=== PATIENT | female | born 1950 | race Caucasian/White ===

== ENCOUNTER 2019-01-29 09:59 | Inpatient (IN) | payer OTHER ==
[~2019-01-29] VITALS: Ht 167.6 cm; Wt 71.7 kg
[2019-01-29 10:02] VITALS: BP 169/95
--- NOTE | 2019-01-29 10:11 | NUR ---
PT BROUGHT BACK TO ER ROOM FROM WAITING AREA. EKG PERFORMED BY CHRISTELLE DODGE AND GIVEN TO DR. ANDERSON. PT ATTACHED TO BP CUFF, PULSE OX, AND TELEMETRY BY CHRISTELLE PAUL. THIS NURSE INSERTED 18 G IN LEFT UPPER ARM. BLOOD WORK COLLECTED FROM IV BY THIS NURSE. BLOOD WORK GIVEN TO ASSET ACCOUNTANT AT BEDSIDE AND ASSET ACCOUNTANT SENT BLOOD WORK TO LAB. ASSESSMENT PERFORMED BY THIS NURSE. PT IN GOWN AND GIVEN WARM BLANKET. PT MADE AWARE OF PLAN OF CARE AND WAIT TO SEE DRJenny STATED UNDERSTANDING. DENIES OTHER NEEDS. CALL LIGHT PLACED WITHIN REACH.
[2019-01-29 10:16] LABS: ABSOLUTE BASOPHILS 0.1 thou/uL (0.0-0.2); ABSOLUTE LYMPHOCYTES 1.7 thou/uL (0.8-5.3); ABSOLUTE MONOCYTES 0.3 thou/uL (0.0-1.2); ABSOLUTE NEUTROPHILS 7.8 thou/uL (1.6-8.1); BASOPHILS 0.8 %; EOSINOPHILS 0.2 %; HEMATOCRIT 48.4 % (37.0-47.0); HEMOGLOBIN 16.2 gm/dL (12.0-15.0); MCH 30.4 pg (26.0-34.0); MCHC 33.6 g/dL (28.0-37.0); MCV 90.7 fL (80.0-100.0); MONOCYTES 2.8 %; MPV 9.8 fl. (7.2-11.1); NUCLEATED RBCS 0 /100WBC; PLATELET COUNT* 226 thou/uL (150-400); POLYS 79.2 %; RBC 5.33 mil/uL (4.20-5.00); RDW-CV 13.1 % (10.5-14.5); WBC 9.8 thou/uL (4.0-11.0)
[2019-01-29 10:25] LABS: APTT 29.6 Seconds (25.0-31.3); INR 0.9; PROTIME 9.4 Seconds (9.20-11.50)
--- NOTE | 2019-01-29 10:25 | NUR ---
MEDS ADMINISTERED TO PT BY THIS NURSE. REGISTERED DIETICIAN X2 AT BEDSIDE PERFORMING CHEST XRAY.
[2019-01-29 10:32] LABS: CALCIUM 9.3 mg/dL (8.5-10.1); CREATININE 0.8 mg/dL (0.6-1.3); POTASSIUM 3.4 mmol/L (3.5-5.1)
[2019-01-29 10:34] LABS: TROPONIN-I LEVEL 3.06 ng/mL (<0.06)
[2019-01-29 10:36] LABS: ALBUMIN 4.3 g/dL (3.4-5.0); CK-MB MASS 29.2 ng/mL (<0.5-3.6); TOTAL BILIRUBIN 0.5 mg/dL (<0.1-1.0); TOTAL PROTEIN 8.1 g/dL (6.4-8.2)
--- NOTE | 2019-01-29 10:55 | NUR ---
NURSE ADMINISTERED MEDS. PT REPORTING PAIN IN CHEST STILL REMAINS. DR. ANDERSON AWARE, NURSE ASKED FOR MORPHINE. DR. ANDERSON AGREEABLE AND TO ORDER MORPHINE. WILL ADMINISTER WHEN PT BACK FROM CT.
--- NOTE | 2019-01-29 11:48 | NUR ---
REPORT GIVEN TO CHRISTELLE DIAS WHO IS TO ASSUME PT CARE. PT BELONGINGS PACKED IN BAG. PT TO BE TAKEN TO ROOM 218 VIA STRETCHER BY THIS NURSE WITH CARDIAC MONITORING AND OXYGEN.
[2019-01-29 11:50] VITALS: BP 151/67
[2019-01-29 12:25] VITALS: BP 143/83
--- NOTE | 2019-01-29 16:22 | NUR ---
PT ADMITTED TO ROOM 218 AROUND 1200 TODAY. CONSULTED WITH CARDIOLOGY THIS SHIFT. ANTICIPATE PT TO HAVE HEART CATH TOMORROW AM. . NPO AFTER MIDNIGHT TONIGHT. PT ON HEPARIN GTT AND NITRO PASTE. NO C/O CP SINCE ADMISSION TO FLOOR. REFER TO ASSESSMENT. MAINTAINING OXYGEN SATURATION >92% ON RA. NO OTHER CONCERNS AT THIS TIME. CLWR. WCTM.
[2019-01-29 16:23] VITALS: BP 136/74
[2019-01-29 19:10] VITALS: BP 119/68
--- NOTE | 2019-01-29 23:00 | NUR ---
ASSESSMENT COMPLETED CHARTED. VSS. TRACING SR WITH 1ST DEGREE BLOCK ON MONITOR. PT C/O SLIGHT HEADACHE, DENIES CP, SOA, N/V/D. HOURLY ROUNDING IN PLACEFOR PT SAFETY. CLWR.
[2019-01-29 23:59] VITALS: BP 135/73
[2019-01-30] VITALS (14 sets, daily range): BP systolic 114–163; BP diastolic 42–87
[2019-01-30 01:40] LABS: TROPONIN-I LEVEL 5.24 ng/mL (<0.06)
[2019-01-30 01:42] LABS: CHOLESTEROL 153 mg/dL (<200); HDL CHOLESTEROL 55 mg/dL (>40); LDL CHOLESTEROL 85 mg/dL (<100); TC:HDL 2.8 Ratio (Not establshd); TRIGLYCERIDE 68 mg/dL (<150); VLDL 14 mg/dL (<40)
[2019-01-30 01:45] LABS: SERUM ASSESSMENT Clear
--- NOTE | 2019-01-30 09:46 | NUR ---
INITIAL ASSESSMENT: Pt evaluated for d/c planning needs. Reviewed chart and spoke with nurse, pt and pt's son. Pt is alert and oriented. Pt is retired and lives alone in house. Pt was idnependent with ADL's prior to admission to the hospital. Pt uses no DME and is not sure if she has any at home. Pt has not had home health in the past. Pt plans on returning home on d/c from hospital. Pt is scheduled to have cardiac cath today. Will remain available to assist as needed.
[2019-01-31] VITALS: BP 134/68
[2019-01-31 04:00] VITALS: BP 119/62; BP 144/84
--- NOTE | 2019-01-31 04:13 | NUR ---
PATIENT REMAINS STABLE THIS SHIFT WITH NO C/O CHEST PAIN, SOA, N/V/D. PATIENT HAD C/O RIGHT GROIN PAIN FROM CARDIAC CATH, RELIEVED WITH REST AND PO PAIN MEDICATION. PATIENT REMAINS ON ROOM AIR. ANTICIPATING DISCHARGE HOME TODAY. CALL LIGHT WITHIN REACH
[2019-01-31 05:34] LABS: HEMATOCRIT 39.4 % (37.0-47.0); MCH 30.1 pg (26.0-34.0); MCHC 33.6 g/dL (28.0-37.0); MCV 89.5 fL (80.0-100.0); MPV 10.5 fl. (7.2-11.1); RBC 4.4 mil/uL (4.20-5.00); RDW-CV 12.8 % (10.5-14.5); WBC 11.2 thou/uL (4.0-11.0)
[2019-01-31 05:41] LABS: HEMOGLOBIN 13.2 gm/dL (12.0-15.0)
[2019-01-31 05:55] LABS: ALBUMIN 3.1 g/dL (3.4-5.0); CALCIUM 8.4 mg/dL (8.5-10.1); CREATININE 0.7 mg/dL (0.6-1.3); POTASSIUM 3.7 mmol/L (3.5-5.1); TOTAL BILIRUBIN 0.3 mg/dL (<0.1-1.0); TOTAL PROTEIN 6.1 g/dL (6.4-8.2)
[2019-01-31 05:59] LABS: TROPONIN-I LEVEL 2.16 ng/mL (<0.06)
[2019-01-31 07:30] VITALS: BP 164/80
[2019-01-31] MEDS ORDERED: LIPITOR 20 MG T20 M1 PO (09:00)
[2019-01-31] MEDS ORDERED: CHILDREN'S ASPI81 M1 PO (09:00)
--- NOTE | 2019-01-31 10:03 | EKG ---
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
--- NOTE | 2019-01-31 10:04 | EKG ---
[place] [address] ELECTROCARDIOGRAM REPORT Name: YVESTINO L Room: [address] ADM IN M.R.#: [id number] Admission: 01/29/19 Attend Phys: Kenn Swift Discharge: Date of : 48 Report #: [id number] THIS REPORT FOR: //name// [facility] Test Date: 2019-01-30 Test Time: 15:09:08 Pat Name: TINO MARINELLI Department: Room: [address] Gender: F Mri Tech: MANUEL STARK : 1950 Requested By: Porfirio Henson Order Number: [id number] Reading MD: Hao Padilla Measurements Intervals [place] Rate: 64 P: 50 MN: 157 QRS: 15 QRSD: 90 T: -31 QT: 452 QTc: 467 Interpretive Statements Sinus rhythm Nonspecific T abnormalities, inferior leads No previous ECG available for comparison Electronically Signed On 01-31-2019 10:04:17 CDT by Hao Padilla [email or web address] <ELECTRONICALLY SIGNED> By: Hao Padilla MD, [facility] 01/31/19 1004 1509 1509 Hao Padilla MD, FAC /EPI
--- NOTE | 2019-01-31 10:05 | EKG ---
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: [id number] : 1950 Requested By: Porfirio Henson Order Number: [id number] Reading MD: Hao Padilla Measurements Intervals [place] Rate: 87 P: 57 ME: 169 QRS: -10 QRSD: 98 T: -68 QT: 418 QTc: 503 Interpretive Statements Sinus rhythm Probable left atrial enlargement Nonspecific T abnormalities, diffuse leads Prolonged QT interval Baseline wander in lead(s) V6 No previous ECG available for comparison Electronically Signed On 01-31-2019 10:04:59 CDT by Hao Padilla [email or web address] <ELECTRONICALLY SIGNED> By: Hao Padilla MD, FACC 01/31/19 1004 0325 0325 Hao Padilla MD, [facility] /EPI
[2019-01-31] MEDS ORDERED: EFFIENT10 MG PO (12:32)
[2019-01-31] MEDS ORDERED: NITROGLYCERIN0.4 MG SUBLING (12:33)
[2019-01-31 12:51] VITALS: BP 140/74
[2019-01-31] MEDS ORDERED: ATORVASTATIN CA40 MG PO (13:17)
[2019-01-31] MEDS ORDERED: NICOTINE TRANSD21 M1 TRANSDERM (13:18)
--- NOTE | 2019-01-31 14:27 | NUR ---
RECEIVED DISCHARGE ORDERS PER DR DREW. CV OK WITH DC TODAY. IV DISCONTINUED. SUPERINTENDENT STORAGE AREA REMOVED AND RETURNED TO NURSE'S DESK. EDUCATED THE PATIENT ON F/U APPT WITH HER PRIMARY AND CARDIOLOGY. EDUCATED ON NEW MEDICATIONS. SCRIPTS GIVEN WITH MED INFORMATION SHEETS. PATIENT VERBALIZED UNDERSTANDING AND DENIED ANY QUESTIONS OR CONCERNS AT TIME OF DC. LEAVING VIA WHEELCHAIR ACCOMPANIED BY NURSING STAFF AND HER SON.
--- NOTE | 2019-01-31 15:05 | EKG ---
[place] [address] ELECTROCARDIOGRAM REPORT Name: YVESTINO Room: [address] IN M.R.#: [id number] Admission: 01/29/19 Attend Phys: Kenn Swift Discharge: 01/31/19 Date of : 48 Report #: [id number] THIS REPORT FOR: //name// [facility] ED Test Date: 2019-01-29 Test Time: 10:04:59 Pat Name: TINO MARINELLI Department: Room: [facility] Gender: F Table Cover Folder: Ester : 1950 Requested By: Hesham Rajput Order Number: [id number] MD: Hao Padilla Measurements Intervals [place] Rate: 72 P: 45 UT: 154 QRS: -3 QRSD: 98 T: 57 QT: 427 QTc: 468 Interpretive Statements Sinus rhythm Probable left atrial enlargement No previous ECG available for comparison Electronically Signed On 01-31-2019 15:05:24 CDT by Hao Padilla [email or web address] <ELECTRONICALLY SIGNED> By: Hao Padilla MD, [facility] 01/31/19 1505 1004 1004 Hao Padilla MD, [facility] /EPI
--- NOTE | 2019-01-31 16:17 | CON ---
[address] [address] CONSULTATION Name: YVESTINO Aparna Room: [address] IN M.R.#: [id number] Admission: 01/29/19 Attend Phys: Kenn Swift Discharge: 01/31/19 Date of : 48 Report #: [id number] THIS REPORT FOR: //name// CC: Cammie Saul DATE OF SERVICE: 01/29/2019 CARDIOLOGY CONSULTATION HISTORY OF PRESENT ILLNESS: The patient is a 68-year-old single white female who I was asked to see in the hospital today after she complained of chest pain. The patient has no previous history of heart disease; however, she notes now for several months, she has had intermittent tightness in her chest. It usually occurs when she lies down in bed at night; however, last night, she had an episode that went into her left arm. She felt nauseated. It occurred off and on throughout the night. She finally drove herself to [facility] and admitted. She was noted to have an abnormal troponin. I was asked to see her for further evaluation and treatment. At this time, her chest pain has resolved. She denies any exertional dyspnea, palpitations, syncope, edema, fever, bleeding or cough. PAST MEDICAL HISTORY: She has had previous surgery on her foot. She has had a hysterectomy. She has a history of hyperlipidemia, but no longer takes a statin drug. She has glucose intolerance. She uses inhaler for COPD. She is on no other chronic medications. ALLERGIES: SHE HAS AN INTOLERANCE TO PHENOBARBITAL. FAMILY HISTORY: Her mother had a stent. SOCIAL HISTORY: She has been twice. Lives in [place], [place] [address] Smokes 2 packs of cigarettes a day, occasionally drinks alcohol. REVIEW OF SYSTEMS: She has had no history of stroke. She has had peptic ulcer in the past. She uses an inhaler. No history of GI bleeding, liver disease, cancer, psychiatric illness or chronic skin condition. PHYSICAL EXAMINATION: GENERAL: Revealed a middle-aged female lying in bed. She appeared in no distress. VITAL SIGNS: Blood pressure 140/80, pulse 50, she is afebrile. HEENT: She was anicteric, conjunctivae pink. Mucous membranes are moist. NECK: Neck veins nondistended. No carotid bruits. Neck supple. CHEST: [place] [address] CONSULTATION Name: TINO MARINELLI Room: [address]#: [id number] Admission: 01/29/19 Attend Phys: Kenn Swift Discharge: 01/31/19 Date of : 48 Report #: [id number] CARDIOVASCULAR: Regular rate and rhythm without murmur. ABDOMEN: Soft, nontender. EXTREMITIES: Had no edema. SKIN: Warm and dry. NEUROLOGIC: Nonfocal. LYMPH: No adenopathy. MUSCULOSKELETAL: No joint effusion. ECG showed a sinus rhythm. There was no significant ST or T-wave change. Workup in the Emergency Room today, she had portable chest x-ray that showed some atelectasis, otherwise unremarkable. She had a CT scan of the chest today with contrast that showed no pulmonary embolus, hepatic cysts, pulmonary atelectasis. LABORATORY DATA: Sodium 145, potassium 3.4, BUN 16, creatinine 0.8, glucose 122. Liver function studies are normal. Troponin on admission was 3.06. White blood cell count 9.8, hemoglobin 16.2. IMPRESSION AND RECOMMENDATIONS: 1. Non-ST elevation myocardial infarction. Recommend cardiac catheterization. 2. Tobacco abuse. 3. Glucose intolerance. <ELECTRONICALLY SIGNED> By: Uriel Patel MD, FACC 01/31/19 1617 1245 [id number] Patel MD, FACC /nt
--- NOTE | 2019-01-31 16:31 | CARD ---
[address] [address] CARDIAC CATH REPORT Name: TINO MARINELLI Room: [address]R#: [id number] Admission: 01/29/19 Attend Phys: Kenn Swift Discharge: 01/31/19 Date of : 48 Report #: [id number] THIS REPORT FOR: //name// APPROVED REPORT Study performed: 01/30/2019 11:23:22 Patient Details The patient is a 68 year-old female Event Personnel Porfirio Henson Cabinet Abrasive Sandblaster, Analy Fonseca RN RN, Inocente KennedyIS Monitor, Toby Ballard (R) Shakira Ramon Tina RN Monitor Procedures Performed Left heart catheterization left ventriculography selective coronary arteriography and percutaneous coronary intervention to the right coronary artery with deployment of a drug-eluting stent Indication Non-STEMI Risk Factors Hypercholesterolemia, Hypertension, Tobacco History () Admission/Lab Medications/Medications given during procedure Aspirin, Platelet Aff. Inhib., Angiomax bolus and infusion Procedure Narrative The patient was brought electively to the Cardiac Catheterization Laboratory and was prepped and draped in a sterile manner. The right femoral was infiltrated with 2% Lidocaine subcutaneous anesthesia. A 6fr Ultimum Sheath sheath was inserted into the . Coronary angiography was performed using coronary diagnostic catheters. The right coronary system was accessed and visualized with a Diagnostic - JR4 catheter. The left coronary system was accessed and visualized with a Diagnostic - JL4 catheter. The left ventricle was accessed and visualized with a Diagnostic - STR PIG catheter. Left ventricular/Aortic Valve gradient assessed via catheter pullback. Left ventriculogram was performed in GOMEZ projection. The patient tolerated the procedure well and there were no complications associated with the procedure. [place] [address] CARDIAC CATH REPORT Name: TINO MARINELLI Aparna Room: [address]#: [id number] Admission: 01/29/19 Attend Phys: Kenn Swift Discharge: 01/31/19 Date of : 48 Report #: [id number] Intraoperative Conscious Sedation Sedation start time: 1202 Case end Time: 1246 Fentanyl 25 mcg Versed 2 mg Fluoro Time: 11.4 minutes Dose: DAP 29905 cGycm2 1146 mGy Contrast Type and Amount: Visipaque 370 ml Coronary Angiography The patient's coronary anatomy is right dominant. Diagnostic Cath Left Main 0% narrowing LAD 30% proximal and mid LAD narrowing with 40% first diagonal narrowing Circumflex 50 Percent narrowing of the first marginal branch of the nondominant circumflex Right Coronary Large dominant right coronary artery with 90% mid vessel stenosis and local thrombus at the site. There was 50% tubular narrowing of the midportion of the posterolateral branch of the distal right coronary artery Left Ventriculography The left ventricle is normal in size with contractility. The left ventricular ejection fraction is estimated to be 60%. Left ventricular wall motion abnormalities are present. There is no mitral insufficiency. inferobasilar hypokinesis is noted Hemodynamics The aortic pressure is 147/74 mmHg with a mean of 105 mmHg. The left ventricular pressure is 152/2 mmHg with a mean of mmHg. The left ventricular end diastolic pressure is 12 mmHg. There was no gradient across the aortic valve upon pullback. PCI Technique Lesion Anticoagulation was achieved with Angiomax. Patient was preloaded with Angiomax IV 10.5 ml. Percutaneous coronary intervention was performed on the mid right coronary artery. The lesion stenosis prior to intervention was 90% with JIM 3 flow. A 6F JR 4.0 Guide Catheter was used to engage the ostium. A IG: BMW 190cm Interventional Guidewire was used to cross the lesion. BALLOON DILATION A Balloon catheter Trek RX 2.5 X 12 was inserted and inflated up to 14.00atm [place] 11seconds. [place] [address] CARDIAC CATH REPORT Name: TINO MARINELLI Room: [address]#: [id number] Admission: 01/29/19 Attend Phys: Kenn Swift Discharge: 01/31/19 Date of : 48 Report #: [id number] STENT DEPLOYMENT A stent Xience Sharon 3.09C33mf was inserted and inflated up to 12.00atm for 10seconds. Additional Inflation: 18.00atm for 11seconds. Additional Inflation: 22.00atm for 14seconds. POST STENT DEPLOYMENT BALLOON DILATION A Balloon catheter NC Farhad RX3.50x15 was inserted and inflated up to 15.00atm for 14seconds. Additional Inflation: 18.00atm for 7seconds. Additional Inflation: 19.00atm for 15seconds. 20 NHAN FOR 8 SEC Final angiography reveals 0 % stenosis with JIM 3 flow. Conclusion #1 significant coronary artery disease characterized by the following: A 30% proximal and mid LAD narrowing with 40% first diagonal narrowing B 50% narrowing of the first marginal branch of the nondominant circumflex C large dominant right coronary artery with 90% mid vessel stenosis and local thrombus at the site with 50% narrowing in the midportion of the posterolateral branch #2 normal global left ventricular systolic function, estimate ejection fraction being 60% with mild inferobasilar hypokinesis #3 normal left-sided hemodynamics study #4 successful percutaneous coronary intervention with deployment of a drug-eluting stent at site of 90% mid right coronary stenosis with 0% residual narrowing JIM-3 flow to the distal vessel and no residual thrombus Recommendations Smoking Cessation Cardiac Risk Reduction Program Medications Administered Aspirin (any) [place] [address] CARDIAC CATH REPORT Name: TINO MARINELLI Aparna Room: [address]#: [id number] Admission: 01/29/19 Attend Phys: Kenn Swift Discharge: 01/31/19 Date of : 48 Report #: [id number] Diagnostic Cath Approved by: Porfirio Henson MD Date/Time: 01/31/2019 16:30:37 <ELECTRONICALLY SIGNED> By: Porfirio Henson MD, FAC 01/31/19 1631 163 1631Porfirio Henson MD, FAC /INF
== END 2019-01-31 14:29 | disposition home or self-care (01) | DRG 247 ==
LOC: M.ERS 09:59 → M.TBA-ER 10:48 → M.2W 10:48
PROVIDERS: Family Medicine; Internal Medicine; Internal Medicine Cardiovascular Disease; ADMIT Internal Medicine
PROC: B2111ZZ Fluoroscopy of Multiple Coronary Arteries using Low Osmolar Contrast (ICD-10-PCS; principal; 2019-01-31)
PROC: 4A023N7 Measurement of Cardiac Sampling and Pressure, Left Heart, Percutaneous Approach (ICD-10-PCS; principal; 2019-01-31)
PROC: B2151ZZ Fluoroscopy of Left Heart using Low Osmolar Contrast (ICD-10-PCS; principal; 2019-01-31)
PROC: 027034Z Dilation of Coronary Artery, One Artery with Drug-eluting Intraluminal Device, Percutaneous Approach (ICD-10-PCS; principal; 2019-01-31)
DX: I21.4 Non-ST elevation (NSTEMI) myocardial infarction (principal); J98.11 Atelectasis; E78.5 Hyperlipidemia, unspecified; J45.909 Unspecified asthma, uncomplicated; E74.39 Other disorders of intestinal carbohydrate absorption; R91.1 Solitary pulmonary nodule; I25.10 Atherosclerotic heart disease of native coronary artery without angina pectoris; F17.210 Nicotine dependence, cigarettes, uncomplicated; Z90.710 Acquired absence of both cervix and uterus; Z79.899 Other long term (current) drug therapy; Z88.0 Allergy status to penicillin; Z88.8 Allergy status to other drugs, medicaments and biological substances; Z82.49 Family history of ischemic heart disease and other diseases of the circulatory system

== ENCOUNTER → 2020-01-19 | Outpatient (CLI) | payer MEDICARE ==
[~2020-01-19] MED LIST: ATORVASTATIN CA40 MG PO; CHILDREN'S ASPI81 M1 PO; EFFIENT10 MG PO; LIPITOR 20 MG T20 M1 PO; NICOTINE TRANSD21 M1 TRANSDERM; NITROGLYCERIN0.4 MG SUBLING
--- NOTE | 2020-01-20 13:48 | CARDNUC ---
[place] [address] CARDIAC NUCLEAR IMAGING REPORT Name: TINO MARINELLI Room: [facility]#: [id number] Admission: 01/19/20 Attend Phys: Rubio Harper Discharge: Date of : 48 Date of Service: 01/20/20 1347 Report #: [id number] THIS REPORT FOR: cc: Cammie Alcantar MD, Rebecca MD Biggs, F. Douglas MD [facility] ~ APPROVED REPORT Study performed: 01/19/2020 07:45:00 Indication: Chest pain Patient Location: Out-Patient Stress Tech: Barbara Brown Stress Nurse: Tammi Vaz RN Ht: 5 ft 5 in Wt: 149 lbs BSA: 1.75 m2 BMI: 24.79 Medical History Medical History: CAD s/p VT, Hyperlipidemia Medications: ASA-81,ATORVASTATN,PRASUGREL Allergies: PENICILLIN, PHENOBARBITAL Cardiac Risk Factors: Age, Hyperlipidemia, Tobacco History (Current/Recent), FHX of CAD Exercise History: Sedentary Resting Data Rest SPECT myocardial perfusion imaging was performed in supine position 30 minutes following the intravenous injection of 10.1 mCi of Tc-99m Sestamibi. Time of rest injection: 08:10 The images were gated to evaluate regional wall motion and calculate left ventricular ejection fraction. Administration Route: IV Administration Site: Right AC Pharmacologic Stress Pharmacologic stress test was performed by injecting Regadenoson 0.4 mg IV push over 10-15 seconds immediately followed by the intravenous injection of 29.0 mCi of Tc-99m Sestamibi. Time of stress injection: 09:45 Administration Route: IV Administration Site: Right AC Heart Rate at time of stress injection: [address] [place] [address] CARDIAC NUCLEAR IMAGING REPORT Name: TINO MARINELLI Room: [facility]#: [id number] Admission: 01/19/20 Attend Phys: Rubio Harper Discharge: Date of : 48 Date of Service: 01/20/20 1347 Report #: [id number] Gated Stress SPECT was performed 45 minutes after stress injection. The images were gated to evaluate regional wall motion and calculate left ventricular ejection fraction. Prone imaging was performed. Stress Test Details Stress Test: Pharmacologic stress testing performed using 0.4 mg of regadenoson per 5 mL given IV over 10 seconds. Reason for pharmacologic stress test: physical limitation. HR Max Heart Rate (APMHR): 150 bpm Resting HR: 71 bpm Target HR (85% APMHR): 127 bpm Max HR Achieved: 110 bpm % of APMHR: 73 Recovery HR: 94 bpm HR response to stress: Normal HR response to stress BP Resting BP: 143/83 mmHg Max BP: 162/82 mmHg Recovery BP: 151/81 mmHg BP response to stress: Normal blood pressure response to stress. ECG Resting ECG: Sinus Rhythm, normal EKG Stress ECG: Sinus Tachycardia, otherwise normal ST Change: None Arrhythmia: None Recovery ECG: Sinus Rhythm, normal EKG Recovery ST Change: None Recovery Arrhythmia: None Clinical Reason for Termination: Completed protocol Stress Symptoms: None Nurse Comments UNABLE TO WALK ON TREADMILL PEDRO TO GENERALIZED WEAKNESS Stress ECG Conclusion Clinical: Non-ischemic Non-diagnostic pharmacologic stress due to failure to attain target [place] [address] CARDIAC NUCLEAR IMAGING REPORT Name: TINO MARINELLI Aparna Room: [facility]#: [id number] Admission: 01/19/20 Attend Phys: Rubio Harper Discharge: Date of : 48 Date of Service: 01/20/20 1347 Report #: [id number] Study: Good Artifact: Mild Soft tissue attenuation artifact Lung Uptake: Normal Study Data At rest, the left ventricular ejection fraction was 67%.. Post stress, the left ventricular ejection was 72%.. SSS: 2 SRS: 10 SDS: -8 TID = 1 1.00. Perfusion No evidence of stress induced ischemia or prior myocardial infarction. Normal left ventricular size and function with no regional wall motion abnormalities. Normal left ventricular perfusion. Images were reviewed using [employer]. Wall Motion Normal left ventricular size and function with no regional wall motion abnormalities. Nuclear Conclusion ECG Findings: non-diagnostic Clinical Findings: negative for ischemia Nuclear Findings: negative for ischemia Exercise Capacity: not assessed Left Ventricular Function: normal Risk Study: low Normal study. No scintigraphic evidence for myocardial ischemia or scar. <Conclusion> Clinical: Non-ischemic Non-diagnostic pharmacologic stress due to failure to attain target HR. <ELECTRONICALLY SIGNED> By: Hillary Dove MD, FACC 01/20/20 1347 46 134 Hillary Dove MD, FACC /INF
== END ==
LOC: M.NUC 06-26 16:45
DX: I25.10 Atherosclerotic heart disease of native coronary artery without angina pectoris (principal); I21.4 Non-ST elevation (NSTEMI) myocardial infarction; Z88.0 Allergy status to penicillin; Z88.8 Allergy status to other drugs, medicaments and biological substances